=== PATIENT | male | born 1995 | race Caucasian/White ===

== ENCOUNTER → 2018-11-16 16:44 | Outpatient (CLI) | payer SELFPAY | PROVIDERS: Family Provider Pediatrics; PCP Pediatrics; Referring Provider Otolaryngology Otolaryngology/Facial Plastic Surgery; Visit Provider Otolaryngology Otolaryngology/Facial Plastic Surgery | DX: J02.9 Acute pharyngitis, unspecified (principal); J32.9 Chronic sinusitis, unspecified | CPT/HCPCS: 87070; 87077 ==